=== PATIENT | male | born 1975 | race African-American/Black ===

== ENCOUNTER 2016-12-09 09:17 | Emergency (ER) | payer OTHER ==
[~2016-12-09] VITALS: Ht 182.9 cm; Wt 93.0 kg
[~2016-12-09 09:17] MED LIST: HYCODAN SYRUP480 ML PO; MEGA MULTI FOR1 EAC1 PO; VENTOLIN HFA18 GM IH; ZITHROMAX Z-PA250 MG PO
[2016-12-09 09:34] VITALS: BP 159/86
[2016-12-09] MEDS ORDERED: FLEXERIL10 MG PO (10:17)
== END 2016-12-09 10:46 | disposition home or self-care (01) ==
LOC: EME 09:17
DX: S16.1XXA Strain of muscle, fascia and tendon at neck level, initial encounter (principal); S06.0X9A Concussion with loss of consciousness of unspecified duration, initial encounter; V49.40XA Driver injured in collision with unspecified motor vehicles in traffic accident, initial encounter
CPT/HCPCS: 99281; 99283

== ENCOUNTER 2018-03-07 15:11 | Emergency (ER) | payer OTHER ==
[~2018-03-07] VITALS: Ht 180.3 cm; Wt 100.5 kg
[~2018-03-07 15:11] MED LIST changes: +FLEXERIL10 MG PO
[2018-03-07] MEDS ORDERED: MOTRIN800 MG PO (16:52)
[2018-03-07 16:56] VITALS: BP 122/78
== END 2018-03-07 16:56 | disposition home or self-care (01) ==
LOC: EME 15:11
DX: S16.1XXA Strain of muscle, fascia and tendon at neck level, initial encounter (principal); M25.561 Pain in right knee; V49.10XA Passenger injured in collision with unspecified motor vehicles in nontraffic accident, initial encounter
CPT/HCPCS: 73564; 99281; 99283